=== PATIENT | female | born 1940 ===

== ENCOUNTER → 2021-03-15 | Outpatient (CLI) | payer OTHER ==
[~2021-03-15] MED LIST: ADULT ASPIRIN81 MG; CARVEDILOL12.5 MG; CATAFLAM50 MG; COZAAR25 MG; LIPITOR40 MG
== END | disposition home or self-care (01) ==
LOC: MAMO-SONO 10:08
PROVIDERS: ATTEND Obstetrics & Gynecology
DX: Z12.31 Encounter for screening mammogram for malignant neoplasm of breast (principal); Z87.898 Personal history of other specified conditions; N60.11 Diffuse cystic mastopathy of right breast

== ENCOUNTER 2022-01-09 07:29 | Outpatient (CLI) | payer OTHER | END 2022-01-09 07:30 | disposition home or self-care (01) | LOC: TOM 07:29 | PROVIDERS: ATTEND Internal Medicine | DX: R10.9 Unspecified abdominal pain (principal); K92.1 Melena ==

== ENCOUNTER 2022-02-13 07:50 | Outpatient (CLI) | payer OTHER | END 2022-02-13 07:57 | disposition home or self-care (01) | LOC: SONOGRAMA 07:50 | PROVIDERS: ATTEND Internal Medicine | DX: M75.21 Bicipital tendinitis, right shoulder (principal) ==